=== PATIENT | male | born 1980 | race Caucasian/White ===

== ENCOUNTER 2018-09-14 11:39 | Observation (INO) | payer OTHER ==
[2018-09-14] MEDS ORDERED: Acetaminophen/HYDROcodone 325-10 MG Tab PO ONE (11:49)
[2018-09-14] MEDS ORDERED: Cyclobenzaprine 10 MG Tab PO ONE (11:49)
[2018-09-14] MEDS ORDERED: predniSONE 20 MG Tab PO ONE (11:50)
[2018-09-14] MEDS ORDERED: Naproxen 500 MG Tab PO ONE (11:51)
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
--- NOTE | 2018-09-14 13:47 | CT ---
[id number] CT/CT Thoracic Spine WO IV Exam: CT Thoracic Spine WO IV Clinical Data: TRAUMA COMPARISON: NO PREVIOUS SIMILAR EXAM IS AVAILABLE FINDINGS: No fracture or subluxation is seen. There are early degenerative changes. IMPRESSION: NO FRACTURE OR SUBLUXATION Jack Salazar MD 09/14/18 [id number] Thank you for allowing us to participate in the care of your patient.
--- NOTE | 2018-09-14 13:48 | CT ---
[id number] CT/CT Lumbar Spine WO IV Exam: CT Lumbar Spine WO IV Clinical Data: TRAUMA COMPARISON: NO PREVIOUS SIMILAR EXAM IS AVAILABLE FINDINGS: No fracture or subluxation is seen. There are early degenerative changes. IMPRESSION: NO FRACTURE OR SUBLUXATION. Jack Salazar MD 09/14/18 1322 Thank you for allowing us to participate in the care of your patient.
[2018-09-14] MEDS ORDERED: Take Home: Naproxen 500 MG Tab, 4 Tab Pack PO ONE (14:18)
[2018-09-14] MEDS ORDERED: Take Home: Cyclobenzaprine 10 MG Tab, 4 Tab Pack PO ONE (14:18)
[2018-09-14] MEDS ORDERED: Take Home: predniSONE 20 MG, 2 Tab Pack PO ONE (14:18)
[2018-09-14] MEDS ORDERED: Take Home: Acetaminophen/HYDROcodone 325-10 MG, 5 Tab Pack PO ONE (14:18)
[2018-09-14] MEDS ORDERED: Naloxone 0.4 MG/ML SDV IVPUSH ONE ×2 (16:05→16:08)
[2018-09-14 16:38] LABS: CHLORIDE,CL 104 mmol/L (98-107); SODIUM,NA 140 mmol/L (136-145)
[2018-09-14 16:41] LABS: ANION GAP 17.5 mmol/L (10-20)
--- NOTE | 2018-09-14 16:50 | CT ---
[id number] CT/CT Head WO IV EXAM: CT Head WO IV CLINICAL DATA: SYNCOPE COMPARISON: NO PREVIOUS SIMILAR EXAM IS AVAILABLE FOR COMPARISON. FINDINGS: There is no mass or mass effect. There is no hemorrhage or hydrocephalus. There are no extra-axial fluid collections. There are no sites of abnormal attenuation. IMPRESSION: NO PLAIN CT EVIDENCE OF ACUTE INTRACRANIAL PROCESS. Jack Salazar MD 09/14/18 0113 Thank you for allowing us to participate in the care of your patient.
[2018-09-14] MEDS ORDERED: cefTRIAXone 2 GM Vial IVPUSH ONE (16:55)
[2018-09-14] MEDS ORDERED: Sodium Chloride 0.9% 1,000 ML IV SCH ×2 (17:00)
[2018-09-14] MEDS ORDERED: Ondansetron 4 MG/2 ML SDV IV PRN (18:59)
[2018-09-14] MEDS: Cyclobenzaprine 10 MG Tab PO PRN (20:13)
[2018-09-15] MEDS: Cyclobenzaprine 10 MG Tab PO PRN ×2 (07:29→12:20)
[2018-09-15] MEDS ORDERED: Naproxen 500 MG Tab PO SCH ×2 (07:45→08:30)
[2018-09-15] MEDS: Acetaminophen/HYDROcodone 325-5 MG Tab PO PRN ×2 (08:12→12:20)
[2018-09-15 09:11] LABS: CHLORIDE,CL 106 mmol/L (98-107); SODIUM,NA 142 mmol/L (136-145)
[2018-09-15 09:14] LABS: ANION GAP 14.4 mmol/L (10-20)
--- NOTE | 2018-09-15 11:59 | CR ---
[id number] RAD/RAD Chest PA or AP 1V EXAM: SINGLE VIEW CHEST. INDICATION: SYNCOPE COMPARISON: NO PREVIOUS SIMILAR EXAM IS AVAILABLE FINDINGS: The lungs are clear. The cardiac silhouette is magnified. IMPRESSION: NO PNEUMONIA OR EDEMA. Jack Salazar MD 09/15/18 [id number] Thank you for allowing us to participate in the care of your patient.
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
== END 2018-09-15 14:30 | disposition short-term general hospital (02) ==
LOC: VM.ED 11:39 → VM.MS 16:55
PROVIDERS: ADMIT Nurse Practitioner Family; ATTEND Nurse Practitioner Family
DX: M54.6 Pain in thoracic spine (principal); R55 Syncope and collapse
CPT/HCPCS: 36415; 70450; 71045; 72128; 72131; 80053; 81001; 82962; 83605; 83735; 84100; 84443; 84484; 85025; 85610; 87040; 93005; 96361; 96374; 96375; 99285; A9270; J0696; J2310; J7030; G0378